=== PATIENT | female | born 1975 | race Caucasian/White ===

== ENCOUNTER 2022-07-29 16:55 | Outpatient (REF) | payer BC, SELFPAY ==
[2022-07-29 15:07] LABS: Abs Immature Grans 0.01 10^3/uL (0.0-0.06); Absolute Basophil Count 0.02 10^3/uL (0.0-0.2); Absolute Eosinophil Count 0.18 10^3/uL (0.0-0.7); Absolute Lymphocyte Count 1.98 10^3/uL (1.2-3.4); Absolute Neutrophil Count 2.97 10^3/uL (1.2-6.7); Basophils % 0.4; Eosinophils % 3.2; HCT 44.7 % (36.0-46.0); HGB 14.1 g/dL (11.2-15.7); Immature Grans % 0.2; Lymphocytes % 35.6; MCH 27.7 pg (27.0-33.0); MCHC 31.5 % (32.0-36.0); MCV 88 fL (80-95); MPV 8.9 fL (8.0-11.0); Monocytes % 7.2; Neutrophils % 53.4; Platelet Count 290 10^3/uL (130-400); RBC 5.09 10^6/uL (3.93-5.22); RDW 12.2 % (11.7-14.6); RDW-SD 39.8 fL; WBC 5.56 10^3/uL (4.4-10.8)
[2022-07-29 15:21] LABS: ALT 25 U/L (14-59); AST 21 U/L (15-37); Albumin 3.7 g/dL (3.4-5.0); Alkaline Phosphatase 72 U/L (46-116); Anion Gap 7.7 mmol/L (3-11); BUN 13 mg/dL (7-18); Bilirubin, Total 0.5 mg/dL (0.2-1.0); CO2 30.3 mmol/L (21.0-32.0); CREATININE 0.7 mg/dL (0.55-1.02); Calcium 8.9 mg/dL (8.5-10.1); Chloride 103 mmol/L (98-107); Estimated GFR 108.62 (mL/min/1.73m2); Glucose 91 mg/dL (74-106); Potassium 4.4 mmol/L (3.5-5.1); Sodium 141 mmol/L (136-145); Total Protein 7.2 g/dL (6.4-8.2)
[2022-07-30 12:17] LABS: EBNA IgG Negative (Negative); EBV Interpretation (See Note); VCA IgG Positive (Negative); VCA IgM Negative (Negative)
== END 2022-07-29 16:56 | disposition home or self-care (01) ==
LOC: LBN 16:55
PROVIDERS: Visit Provider Family Medicine
DX: R50.9 Fever, unspecified (principal)
CPT/HCPCS: 80053; 85025; 86664; 86665

== ENCOUNTER 2023-01-23 00:04 | Outpatient (CLI) | payer BC, SELFPAY ==
--- NOTE | 2023-01-23 08:50 | DI.MAMMO_ITS ---
Exam(s) MAMMO SCREENING EXAM: MAMMO SCREENING CLINICAL HISTORY: SCREENING FOR BREAST CANCER Z12.39 TECHNIQUE: Mammograms were interpreted according to the usual protocol including computer analysis w [employer] CAD system, tomosynthesis and C-view imaging. COMPARISON: None. Patient has prior exams performed in [place] which have been requested but have n ot yet come. The reports are available which indicate no previous abnormalities. FINDINGS: The breasts are composed of heterogeneously dense fibroglandular densities, Breast Density category C . No suspicious masses or suspicious microcalcifications are seen. No skin thickening or abnormal axillary lymph nodes are seen. IMPRESSION: BI-RADS Category 1, Negative mammogram. Yearly screening mammography is recommended. Breast Density Category C, heterogeneously Dense. The mammogram demonstrates the patient's breast tissue is dense. Dense breast tissue is very common a nd is not abnormal but dense breast tissue can make it harder to find cancer on a mammogram. Also, de nse breast tissue may increase breast cancer risk. This information about the result of the mammogram report was provided to the patient to raise their awareness. Use this report when you speak with the patient about their risks for breast cancer, which includes their family history. At that time, you may recommend additional screening tests (Ultrasound or MRI) as they might be useful based on their r isk. A negative radiographic report should not delay biopsy if a dominant or clinically suspicious mass is present. Up to ten percent of cancers are not identified on mammography. A negative report may reinforce clinical impression. Adenosis and dense breasts may obscure an underlying neoplasm. False positive reports average 6 to 10%.
== END 2023-01-23 00:24 ==
LOC: DI 00:04
PROVIDERS: PCP Nurse Practitioner Family; Visit Provider Nurse Practitioner Family
DX: Z12.31 Encounter for screening mammogram for malignant neoplasm of breast (principal)
CPT/HCPCS: 77063; 77067

== ENCOUNTER 2023-10-05 12:06 | Outpatient (REF) | payer BC, SELFPAY | END 2023-10-05 12:07 | disposition home or self-care (01) | LOC: NCHCN 12:06 | PROVIDERS: PCP Nurse Practitioner Family; Visit Provider Nurse Practitioner Family | DX: J02.9 Acute pharyngitis, unspecified (principal) | CPT/HCPCS: 87077; 87070 ==

== ENCOUNTER → 2024-03-09 01:03 | Outpatient (CLI) | payer BC, SELFPAY ==
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
--- NOTE | 2024-03-09 13:13 | DI.MAMMO_ITS ---
Exam(s) MAMMO SCREENING EXAM: MAMMO SCREENING CLINICAL HISTORY: SCREENING, Z12.39 TECHNIQUE: Mammograms were interpreted according to the usual protocol including computer analysis w [employer] CAD system, tomosynthesis and C-view imaging. COMPARISON: 2022 FINDINGS: The breasts are composed of heterogeneously dense fibroglandular densities, Breast Density category C . No suspicious masses or suspicious microcalcifications are seen. No skin thickening or abnormal axillary lymph nodes are seen. There has been no significant change from prior exams. IMPRESSION: BI-RADS Category 1, Negative mammogram. Yearly screening mammography is recommended. Breast Density Category C, heterogeneously Dense. The mammogram demonstrates the patient's breast tissue is dense. Dense breast tissue is very common a nd is not abnormal but dense breast tissue can make it harder to find cancer on a mammogram. Also, de nse breast tissue may increase breast cancer risk. This information about the result of the mammogram report was provided to the patient to raise their awareness. Use this report when you speak with the patient about their risks for breast cancer, which includes their family history. At that time, you may recommend additional screening tests (Ultrasound or MRI) as they might be useful based on their r isk. A negative radiographic report should not delay biopsy if a dominant or clinically suspicious mass is present. Up to ten percent of cancers are not identified on mammography. A negative report may reinforce clinical impression. Adenosis and dense breasts may obscure an underlying neoplasm. False positive reports average 6 to 10%.
== END ==
PROVIDERS: PCP Nurse Practitioner Family; Visit Provider Nurse Practitioner Family
DX: Z12.39 Encounter for other screening for malignant neoplasm of breast (principal)
CPT/HCPCS: 77063; 77067

== ENCOUNTER 2024-07-03 12:20 | Emergency (ER) | payer OTHER, SELFPAY ==
[2024-07-03 12:24] VITALS: BP 132/86; PULSE 95; RESP 12; TEMP 36.3; O2SAT 96
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
[2024-07-03 13:25] VITALS: PULSE 90; RESP 18; O2SAT 98
[2024-07-03 13:55] LABS: COVID-19 PCR Negative (Negative); Influenza A PCR Negative (Negative); Influenza B PCR Negative (Negative); RSV PCR Negative (Negative)
[2024-07-03 13:56] LABS: Source Nasopharynx
== END 2024-07-03 13:26 | disposition home or self-care (01) ==
PROVIDERS: Emergency Provider Emergency Medicine; PCP Nurse Practitioner Family
DX: S13.4XXA Sprain of ligaments of cervical spine, initial encounter (principal); J06.9 Acute upper respiratory infection, unspecified; B97.89 Other viral agents as the cause of diseases classified elsewhere; V43.52XA Car driver injured in collision with other type car in traffic accident, initial encounter
CPT/HCPCS: 87637; 99283